=== PATIENT | male | born 1955 | race Two or more races ===

== ENCOUNTER 2024-02-24 11:05 | Emergency (ER) | payer OTHER ==
[~2024-02-24] VITALS: Ht 172.7 cm; Wt 86.2 kg
[2024-02-24] MEDS: IV NORMAL SALINE 1000 ML BAG IV ONE ×2 (11:15→11:41)
[2024-02-24] MEDS ORDERED: DILTIAZEM HCL 25 MG IV ONE ×4 (11:29→15:17)
[2024-02-24] MEDS ORDERED: CEFTRIAXONE /D5W 50ML IVPB **ER PYXIS IV ONE (11:29)
[2024-02-24 11:30] LABS: BASOPHILS % (AUTO) 0.2 % (0.0-2.0); EOSINOPHILS % (AUTO) 0.1 % (0.0-7.0); LYMPHOCYTES # (AUTO) 0.7 K/uL (0.8-4.8); LYMPHOCYTES % (AUTO) 3.8 % (20.5-51.5); MEAN CORPUSCULAR HEMOGLOBIN 27.6 uug (23.8-33.4); MEAN CORPUSCULAR HGB CONC 33 g/dL (32.5-36.3); MEAN CORPUSCULAR VOLUME 84.9 fL (73.0-96.2); MONOCYTES # (AUTO) 0.2 K/uL (0.1-1.30); MONOCYTES % (AUTO) 1.1 % (0.0-11.0); NEUTROPHILS # (AUTO) 18.6 K/uL (1.8-8.9); NEUTROPHILS % (AUTO) 94.8 % (38.5-71.5); PLATELET COUNT (AUTO) 236 K/uL (152-348); RED BLOOD CELL COUNT(AUTO) 4.72 MIL/uL (4.06-5.63); RED CELL DISTRIBUTION WIDTH 15.1 % (12.1-16.2); WHITE BLOOD COUNT (AUTO) 19.6 K/uL (3.6-10.2)
[2024-02-24] MEDS ORDERED: MAGNESIUM SULFATE/D5W 300 ML ONE (11:30)
[2024-02-24] MEDS ORDERED: POTASSIUM BICARBONATE/CIT AC 25 MEQ TABLET.EFF ONE (11:30)
[2024-02-24 11:40] LABS: CALCIUM 8.1 mg/dL (8.5-10.1); CREATININE 3.8 mg/dL (0.6-1.3); POTASSIUM 3.8 mmol/L (3.5-5.1)
[2024-02-24] MEDS: CEFTRIAXONE 1 G in IV DEXTROSE 5% 50 ML IV ONE (11:41)
[2024-02-24] MEDS: POTASSIUM BICARBONATE/CIT AC 25 MEQ TABLET.EFF PO ONE (11:42)
[2024-02-24] MEDS: DILTIAZEM HCL 25 MG IV IV ONE ×4 (11:42→13:47)
[2024-02-24] MEDS: MAGNESIUM SULFATE/D5W 100 ML IV SCH (11:43)
[2024-02-24 11:58] LABS: DIFFERENTIAL COMMENT 1
[2024-02-24] MEDS ORDERED: PROCHLORPERAZINE EDISYLATE 10 MG/2 ML VIAL ONE (12:05)
[2024-02-24] MEDS ORDERED: HYDROMORPHONE 1 MG/1 ML DISP.SYRIN ONE (12:05)
[2024-02-24 12:11] LABS: ALBUMIN 2.2 g/dL (3.4-5.0); BILIRUBIN,DIRECT 1.8 mg/dL (0.0-0.2); BILIRUBIN,TOTAL 2.2 mg/dL (0.2-1.0); LACTIC ACID 5.4 mmol/L (0.4-2.0); TOTAL PROTEIN, SERUM 6.8 g/dL (6.4-8.2)
[2024-02-24] MEDS: PROCHLORPERAZINE EDISYLATE 10 MG/2 ML VIAL IV ONE (12:16)
[2024-02-24] MEDS ORDERED: ATOR20TA PO (12:17)
[2024-02-24] MEDS ORDERED: AMLO10TA59 PO (12:17)
[2024-02-24] MEDS: HYDROMORPHONE 1 MG/1 ML DISP.SYRIN IV ONE (12:17)
[2024-02-24] MEDS ORDERED: METF-440 PO (12:17)
[2024-02-24] MEDS ORDERED: LOSA25TA27 PO (12:17)
[2024-02-24] MEDS ORDERED: TRAM50TA2 PO (12:17)
[2024-02-24] MEDS ORDERED: SILD50TA PO (12:17)
[2024-02-24] MEDS ORDERED: DICL100G31 TP (12:17)
[2024-02-24 12:22] LABS: *BLOOD, URINE 3+ (NEGATIVE); *CLARITY,URINE CLOUDY (CLEAR); *COLOR,URINE YELLOW (YELLOW); *KETONES,URINE NEGATIVE (NEGATIVE); *PROTEIN,URINE 2+ (NEGATIVE); LEUKOCYTE ESTERASE ,URINE 1+ (NEGATIVE); NITRITE, URINE NEGATIVE (NEGATIVE); PH,URINE 5.5 (5.0-8.0); UGLUCOSE NEGATIVE (NEGATIVE)
[2024-02-24 12:25] LABS: *BILIRUBIN,URIN 1+ (NEGATIVE)
[2024-02-24] MEDS ORDERED: GENTAMICIN SULFATE 80 MG/2 ML VIAL ONE (13:37)
[2024-02-24 13:47] VITALS: BP 133/92
[2024-02-24] MEDS: GENTAMICIN SULFATE 20 MG/2 ML VIAL IV ONE (13:48)
[2024-02-24] MEDS: PROPOFOL 200 MG/20 ML BOTTLE IV ONE (14:30)
[2024-02-24] MEDS: FENTANYL CITRATE 100 MCG/2 ML AMPUL IV ONE (14:30)
[2024-02-24] MEDS ORDERED: FENTANYL CITRATE 100 MCG/2 ML AMPUL ONE (15:04)
[2024-02-24] MEDS ORDERED: PROPOFOL 200 MG/20 ML BOTTLE ONE (15:04)
[2024-02-24 15:12] LABS: RBC,URINE TNTC /HPF (0-3)
[2024-02-24 15:13] LABS: BACTERIA,URINE MODERATE /HPF (NONE SEEN); SQUAMOUS EPITHELIAL CELL,UR NONE SEEN /HPF (NONE SEEN)
[2024-02-24 19:31] VITALS: O2SAT 97
== END 2024-02-24 21:14 | disposition short-term general hospital (02) ==
LOC: ER 11:05
DX: A41.9 Sepsis, unspecified organism (principal); I48.91 Unspecified atrial fibrillation; N13.9 Obstructive and reflux uropathy, unspecified; D72.0 Genetic anomalies of leukocytes; E11.22 Type 2 diabetes mellitus with diabetic chronic kidney disease; N18.9 Chronic kidney disease, unspecified; R07.89 Other chest pain; Z79.899 Other long term (current) drug therapy
CPT/HCPCS: 36415; 71045; 83605; 85025; 85730; 87040; 93005; A4606; A4663; J0696; J0780; J1170; J1580; J3010; J3475; J3490; J7040